=== PATIENT | male | born 1955 | race Two or more races ===

== ENCOUNTER 2021-10-17 16:29 | Inpatient (IN) | payer MEDICARE, OTHER ==
[~2021-10-17] VITALS: Ht 172.7 cm; Wt 70.3 kg
[2021-10-18] MEDS ORDERED: ZOLPIDEM TARTRATE 5 MG TABLET PO PRN (23:30)
[2021-10-18] MEDS ORDERED: LORAZEPAM 0.5 MG TABLET PO PRN (23:30)
[2021-10-18] MEDS ORDERED: BLOOD SUGAR DIAGNOSTIC 1 EACH STRIP IN ONE (23:30)
[2021-10-18] MEDS ORDERED: ACETAMINOPHEN 325 MG TABLET PO PRN (23:30)
[2021-10-18] MEDS ORDERED: MAG HYDROX/AL HYDROX/SIMETH 30 ML UDC PO PRN (23:30)
[2021-10-18] MEDS ORDERED: MAGNESIUM HYDROXIDE 30 ML UDC PO PRN (23:30)
[2021-10-19 00:19] VITALS: BP 121/78
[2021-10-19] MEDS ORDERED: LISI40TA13 PO (00:33)
[2021-10-19] MEDS ORDERED: METO-357 PO (00:35)
--- NOTE | 2021-10-19 00:47 | NUR ---
RN NOTES : ADMISSION NOTES: ADMITTED THIS 66Y/O MALE PATIENT ADMIT FROM [facility], ADMITTED TO GPS ON 5250 HOLD, PER HOLD GD, PT. QUIT EATING OR PHYSICAL ATTENDING TO HIS PERSONAL HYGINE , HE STOP TAKING HIS MEDICATIONS FOR TREATMENT OF SCHIZOPHRENIA,UNABLE TO CARE FOR HIMSELF.AND DEPRESSION ,PSYCHOSIS ,UPON FACE TO FACE ASSESSMENT PATIENT IS A&O X 2 DISORGNIZED, FORGETFUL,DELUSIONAL ,DISHELVED ,EASILY AGITATED , DENIES SI /HI AT THIS TIME, PT. IS POOR HISTORIAN, POOR INSIGHT ,POOR JUDGEMENT , BOTH MD AWARE AND NOTIFIED OF THE ADMISSION, BELONGINGS CONTRABAND WERE DONE , PT. REFUSED TO SIGNS ADMISSION CONSENT PAPERS DUE TO DISORGNIZED ,ENCOURAGED PT. TO TAKE SHOWER, PT. RIGHTS DISCUSS BY MACHINE GUNNER , PROVIDE THE PT. WITH HANDBOOK, AND MEDICATIONS GUIDE, ENVIRONMENTAL SAFETY CHECK DONE, ENCOURAGED PT. VERBALIZED ANY FEELING CONCERN TO STAFF, ORIENT TO UNIT POLICY, NO ACUTE DISTRESS NOTED,VITAL SIGNS WNL ,DENIES ANY PAIN AT THIS TIME,WILL CONTINUE TO MONITOR FOR Q15 SAFETY AND BEHAVIOR.
--- NOTE | 2021-10-19 00:54 | NUR ---
GPS RN NOTE: DR. ARCHIBALD NOTIFIED ABOUT PATIENT'S ADMISSION AND REQUESTED MD TO RECONCILE THE HOME MEDS.
--- NOTE | 2021-10-19 01:01 | NUR ---
MEDS RECONCILED BY DR. ARCHIBALD.
--- NOTE | 2021-10-19 06:29 | NUR ---
RN NOTES: NEXT OF KIN PLACED CALL THE FAMILY , PT. SON KILEY PLASENCIA AT [phone], AND INFORM REGARDING THE PATIENT ADMIT IN [facility] AND PROVIDE THE HOSPITAL PHONE NUMBER.
[2021-10-19 08:00] VITALS: BP 126/72
[2021-10-19] MEDS: METOPROLOL SUCCINATE 50 MG TAB.SR.24H PO SCH (08:44)
[2021-10-19] MEDS: LISINOPRIL (20MG) 20 MG TABLET PO SCH (08:44)
[2021-10-19 08:56] LABS: ALBUMIN 2.1 g/dL (3.4-5.0); BILIRUBIN,TOTAL 0.4 mg/dL (0.2-1.0); CALCIUM, SERUM 8.4 mg/dL (8.5-10.1); CREATININE 0.8 mg/dL (0.6-1.3); POTASSIUM 4.3 mmol/L (3.5-5.1); TOTAL PROTEIN, SERUM 5.3 g/dL (6.4-8.2)
[2021-10-19] MEDS: Fluoxetine 10 mg capsule PO SCH (11:03)
--- NOTE | 2021-10-19 12:48 | NUR ---
Intial Discharge Plan: The pt. currently resides in his son, Darrell [phone] home[[address] [facility] [address]; [phone]]. Patient stated he is interested in SNF placement if not would be agreeable to return home with son, Darrell. Per Darrell he would also like pt. to go to SNF if not pt. can return to his home with home health and he would like to apply for [facility]. SW will continue to collaborate with Psychiatrist and multidisciplinary team to coordinate a safe and proper discharge.
--- NOTE | 2021-10-19 12:49 | NUR ---
Family Contact: YUKO called and spoke with pt.'s son, Darrell [phone] to gather collateral information. Darrell stated pt. has history of Schizophrenia and medication non compliance. YUKO educated Darrell regarding advanced healthcare directive and Conservatorship. Per Darrell's request YUKO will email Darrell informational packets with appropriate resources to [email or web address]. Per Darrell, he is a hook up driver and is out of state working but his sister, Jovana Burger [phone] can also be contacted if he is unavailable.
--- NOTE | 2021-10-19 12:55 | NUR ---
SW Admit Source: The pt. is a 66 year old Male on a 5150 hold for GD. Per hold, the pt. was brought into [facility] by his son due to failure to care for self. Per hold, the son stated the pt. has displayed a decline in general functioning over the last 3 weeks. Per hold, Darrell stated the pt. has been eating and hydrating less, sleeping more during the day and and poor hygiene. Per hold, patient is paranoid and believes camera's are watching him. Per hold, patient was unable to verbalize a plan for self care and stated he was depressed. Patient and son are both agreeable for pt. to discharge to SNF or home with home health.
--- NOTE | 2021-10-19 14:10 | NUR ---
YUKO Family Contact: YUKO received a call from patient's ex- Fab ([phone]) who stated that the patient will be needing further treatment and to find pt a nursing facility. She stated that pt was living with her son but he works and is unable to properly care for him. She reported that prior to pt living with the son he was living with her. YUKO will recommend nursing facility options to pt and family.
[2021-10-19 16:00] VITALS: BP 103/63
[2021-10-19 19:59] VITALS: BP 125/79
[2021-10-19] MEDS: OLANZAPINE 2.5 MG TABLET PO SCH (21:18)
--- NOTE | 2021-10-20 06:32 | NUR ---
GPS RN NOTE PATIENT SLEPT WELL AT NIGHT, CALM, COOPERATIVE, MED COMPLAINT AT NIGHT, HEBREW SPEAKING, FOLLOWS DIRECTIONS WITH TRANSLATION. WILL ENDORSE TO AM RN FOR CONTINUITY OF CARE.
[2021-10-20 08:00] VITALS: BP 120/53
[2021-10-20] MEDS: OLANZAPINE 2.5 MG TABLET PO SCH ×2 (08:20→21:28)
[2021-10-20] MEDS: METOPROLOL SUCCINATE 50 MG TAB.SR.24H PO SCH (08:20)
[2021-10-20] MEDS: Fluoxetine 10 mg capsule PO SCH (08:21)
[2021-10-20] MEDS: LISINOPRIL (20MG) 20 MG TABLET PO SCH (08:21)
[2021-10-20 16:00] VITALS: BP 107/71
[2021-10-20 19:51] VITALS: BP 122/68
[2021-10-21 08:00] VITALS: BP 98/61
[2021-10-21] MEDS: Fluoxetine 10 mg capsule PO SCH (08:51)
[2021-10-21] MEDS: OLANZAPINE 2.5 MG TABLET PO SCH ×2 (08:51→21:50)
[2021-10-21] MEDS: METOPROLOL SUCCINATE 50 MG TAB.SR.24H PO SCH (08:53)
[2021-10-21] MEDS: LISINOPRIL (20MG) 20 MG TABLET PO SCH (08:53)
--- NOTE | 2021-10-21 12:02 | NUR ---
SNF Referral: YUKO sent clinicals to Roberto schultz from [facility] ([phone]) for placement option. SW sent H & P, progress notes, and medication list.
--- NOTE | 2021-10-21 15:16 | NUR ---
Individual Counseling: SW attempted to meet with pt. in activity room. Pt. was engaged and participating in activity with clinical resource coordinator. SW will continue to monitor patient's ability to participate in millieu.
[2021-10-21 16:00] VITALS: BP 122/75
--- NOTE | 2021-10-21 19:50 | NUR ---
GPS RN NOTES RECEIVED LAYING COMFORTABLY ON BED,A/O X 2-3,SPEAK FRENCH,WITH LITTLE INDONESIAN,COOPERATIVE,FORGETFULL.DENIES DISCOMFORTS AT THE MOMENT.WILL CONTINUE TO MONITOR BEHAVIOR
[2021-10-21 20:00] VITALS: BP 117/79
--- NOTE | 2021-10-21 20:00 | NUR ---
GPS RN NOTES RECEIVED INSIDE HER ROOM,ABLE TO RSPOND TO QUESTION,EASILY GETS AGITATED,WITH POOR IMPULSE.AMBULATE WITH STEADY GAIT,SCREAMS AT TIMES.WILL CONTINUE TO MONITOR BEHAVIOR. Addendum: 10/21/21 at 2020 by FIDENCIO MIR RN NOTES NOT FOR THIS PATIENT
[2021-10-21 21:09] VITALS: BP 117/79
--- NOTE | 2021-10-22 06:57 | NUR ---
GPS RN NOTES SLEEP WELL AT NIGHT.MED COMPLIANT,REDIRECTABLE.
[2021-10-22 08:00] VITALS: BP 111/64
[2021-10-22] MEDS: LISINOPRIL (20MG) 20 MG TABLET PO SCH (08:27)
[2021-10-22] MEDS: Fluoxetine 10 mg capsule PO SCH (08:27)
[2021-10-22] MEDS: OLANZAPINE 2.5 MG TABLET PO SCH ×2 (08:27→20:46)
[2021-10-22] MEDS: METOPROLOL SUCCINATE 50 MG TAB.SR.24H PO SCH (08:27)
[2021-10-22 16:00] VITALS: BP 100/60
[2021-10-22 20:00] VITALS: BP 95/59
--- NOTE | 2021-10-23 07:30 | NUR ---
RN OPENING NOTES RECEIVED PATIENT ON BED RESTING AND A/O X2. ON ROOM AIR TOLERATING WELL. NO SOB NOTED. NOT IN DISTRESS. PATIENT IS CALM AT THIS TIME. WITH NO IV ACCESS. SAFETY MEASURES IN PLACED. BED ON LOWEST LOCKED POSITION, SIDE RAILS UP X2. WILL CONTINUE TO MONITOR.
[2021-10-23 08:00] VITALS: BP 106/67
[2021-10-23] MEDS: OLANZAPINE 2.5 MG TABLET PO SCH ×2 (08:37→21:39)
[2021-10-23] MEDS: METOPROLOL SUCCINATE 50 MG TAB.SR.24H PO SCH (08:38)
[2021-10-23] MEDS: Fluoxetine 10 mg capsule PO SCH (08:38)
[2021-10-23] MEDS: LISINOPRIL (20MG) 20 MG TABLET PO SCH (09:00)
--- NOTE | 2021-10-23 11:25 | NUR ---
Court Notification: SW contacted patient's son Darrell ([phone]) of patient's 5250 hearing today. YUKO left a voicemail.
--- NOTE | 2021-10-23 12:49 | NUR ---
Court Hearing: Patient's court hearing for 0630 was today and it was upheld for GD.
[2021-10-23 16:00] VITALS: BP 101/61
--- NOTE | 2021-10-23 18:31 | NUR ---
RN CLOSING NOTES PATIENT ON BED RESTING AND A/O X2. ON ROOM AIR TOLERATING WELL. NO SOB NOTED. NOT IN DISTRESS. PATIENT IS CALM AT THIS TIME. WITH NO IV ACCESS. DUE MEDS GIVEN. SAFETY MEASURES IN PLACED. BED ON LOWEST LOCKED POSITION, SIDE RAILS UP X2. WILL ENDORSE TO NEXT SHIFT FOR ORESTES.
--- NOTE | 2021-10-23 19:30 | NUR ---
GPS RN NOTE, RECEIVED PATIENT AWAKE AND IN BED, NO S/S OR COMPLAINTS OF PAIN AT THIS TIME. PATIENT IS DISPLAYING NO S/S OF APPARENT DISTRESS AT THIS TIME. PATIENT BREATHING IS UNLABORED WITH EQUAL RISE AND FALL OF THE CHEST. PATIENT IS ALERT AND ORIENTED X 2 ON ROOM AIR WITH A SPO2 99%. PATIENT IS COMPLIANT WITH MEDICATIONS, DEPRESSED, COOPERATIVE, FORGETFUL, AND NEEDS REDIRECTION. PATIENT DENIES SUICIDAL AND HOMICIDAL IDEATIONS AT THIS TIME. PATIENT ASSISTED WITH TURNING AND REPOSITIONING Q2HR AND PRN FOR COMFORT AND CIRCULATION. PATIENT HAS NO NEEDS AT THIS TIME. PATIENT EDUCATED ON THE USE OF THE CALL BARBOZA. PATIENT BED SIDE RAILS UP X 2 FOR SAFETY. PATIENT BED IS LOCKED, LOW, WITH BED ALARM ON. WILL CONTINUE TO MONITOR THIS PATIENT Q15 MINUTES WITH THE HELP OF STAFF TO MAINTAIN SAFETY.
[2021-10-23 20:00] VITALS: BP 116/67
[2021-10-24 08:00] VITALS: BP 105/55
[2021-10-24] MEDS: OLANZAPINE 2.5 MG TABLET PO SCH ×2 (08:24→21:15)
[2021-10-24] MEDS: METOPROLOL SUCCINATE 50 MG TAB.SR.24H PO SCH (08:26)
[2021-10-24] MEDS: LISINOPRIL (20MG) 20 MG TABLET PO SCH (08:26)
[2021-10-24] MEDS: Fluoxetine 10 mg capsule PO SCH (08:26)
[2021-10-24 16:00] VITALS: BP 103/73
--- NOTE | 2021-10-24 19:30 | NUR ---
GPS RN NOTE, RECEIVED PATIENT AWAKE AND IN BED, NO S/S OR COMPLAINTS OF PAIN AT THIS TIME. PATIENT IS DISPLAYING NO S/S OF APPARENT DISTRESS AT THIS TIME. PATIENT BREATHING IS UNLABORED WITH EQUAL RISE AND FALL OF THE CHEST. PATIENT IS ALERT AND ORIENTED X 2 ON ROOM AIR WITH A SPO2 98%. PATIENT IS VINCENTIAN SPEAKING BUT UNDERSTANDS SOME SWEDISH. PATIENT IS COMPLIANT WITH MEDICATIONS, DEPRESSED, COOPERATIVE, FORGETFUL, AND NEEDS REDIRECTION. PATIENT DENIES SUICIDAL AND HOMICIDAL IDEATIONS AT THIS TIME. PATIENT ASSISTED WITH TURNING AND REPOSITIONING Q2HR AND PRN FOR COMFORT AND CIRCULATION. PATIENT HAS NO NEEDS AT THIS TIME. PATIENT EDUCATED ON THE USE OF THE CALL BARBOZA. PATIENT BED SIDE RAILS UP X 2 FOR SAFETY. PATIENT BED IS LOCKED, LOW, WITH BED ALARM ON. WILL CONTINUE TO MONITOR THIS PATIENT Q15 MINUTES WITH THE HELP OF STAFF TO MAINTAIN SAFETY.
[2021-10-24 20:00] VITALS: BP 98/59
[2021-10-25 08:00] VITALS: BP 101/75
[2021-10-25] MEDS: Fluoxetine 10 mg capsule PO SCH (08:27)
[2021-10-25] MEDS: METOPROLOL SUCCINATE 50 MG TAB.SR.24H PO SCH (08:27)
[2021-10-25] MEDS: LISINOPRIL (20MG) 20 MG TABLET PO SCH (08:27)
[2021-10-25] MEDS: OLANZAPINE 2.5 MG TABLET PO SCH ×2 (08:27→21:05)
[2021-10-25 16:00] VITALS: BP 106/78
[2021-10-25 20:19] VITALS: BP 106/59
--- NOTE | 2021-10-25 23:47 | NUR ---
Patient refused skin assessment .
[2021-10-26 08:00] VITALS: BP 108/74
[2021-10-26] MEDS: Fluoxetine 10 mg capsule PO SCH (08:26)
[2021-10-26] MEDS: METOPROLOL SUCCINATE 50 MG TAB.SR.24H PO SCH (08:26)
[2021-10-26] MEDS: OLANZAPINE 2.5 MG TABLET PO SCH ×2 (08:27→21:04)
[2021-10-26] MEDS: LISINOPRIL (20MG) 20 MG TABLET PO SCH (08:27)
[2021-10-26 16:00] VITALS: BP 111/74
[2021-10-26 19:28] VITALS: BP 104/70
[2021-10-27 08:33] VITALS: BP 120/71
[2021-10-27] MEDS: METOPROLOL SUCCINATE 50 MG TAB.SR.24H PO SCH (10:13)
[2021-10-27] MEDS: Fluoxetine 10 mg capsule PO SCH (10:13)
[2021-10-27] MEDS: LISINOPRIL (20MG) 20 MG TABLET PO SCH (10:14)
[2021-10-27] MEDS: OLANZAPINE 2.5 MG TABLET PO SCH ×2 (10:14→21:15)
--- NOTE | 2021-10-27 13:05 | NUR ---
YUKO Family Contact: YUKO contacted pt's son Darrell ([phone]) and notified pt will be discharged to [facility] on 10/29 and he was agreeable with this.
--- NOTE | 2021-10-27 14:01 | NUR ---
no complaints,cooperative,isolative.
[2021-10-27 15:13] VITALS: BP 100/67
[2021-10-27 20:20] VITALS: BP 101/57
[2021-10-28 08:00] VITALS: BP 108/68
[2021-10-28] MEDS: OLANZAPINE 2.5 MG TABLET PO SCH ×2 (08:34→21:27)
[2021-10-28] MEDS: LISINOPRIL (20MG) 20 MG TABLET PO SCH (08:34)
[2021-10-28] MEDS: Fluoxetine 10 mg capsule PO SCH (08:34)
[2021-10-28] MEDS: METOPROLOL SUCCINATE 50 MG TAB.SR.24H PO SCH (08:35)
[2021-10-28 16:29] VITALS: BP 106/70
[2021-10-28 20:00] VITALS: BP 114/64
[2021-10-29 08:00] VITALS: BP 121/75
--- NOTE | 2021-10-29 08:12 | NUR ---
SW Discharge Note: Patient will be discharged to long term facility to [facility] [address] [place] [address]; . Please arrange Ambulance transportation at 1PM. Aeronautical Engineering Professor spoke with LYNN, Appliance Painter And Refinisher at [facility]; ([phone]), who stated patient will be accepted at facility today. Patient is alert and oriented x2. Patient denies any suicidal or homicidal ideations. Patient is aware and agreeable with discharge plans. Patients son Darrell ([phone]) is aware and agreeable of discharge. Patient will continue to follow-up with her Psychiatrist Dr. Angeles [address] [address]; ([phone]) and Cleaner Signs Dr. Bronson at [address] [facility] [address], [place] [address]; ([phone]). Pt presents with euthymic mood and congruent affect.
[2021-10-29 08:22] VITALS: BP 121/75
[2021-10-29] MEDS: LISINOPRIL (20MG) 20 MG TABLET PO SCH (08:22)
[2021-10-29] MEDS: OLANZAPINE 2.5 MG TABLET PO SCH (08:22)
[2021-10-29] MEDS: METOPROLOL SUCCINATE 50 MG TAB.SR.24H PO SCH (08:22)
[2021-10-29] MEDS: Fluoxetine 10 mg capsule PO SCH (08:22)
--- NOTE | 2021-10-29 13:35 | NUR ---
RN-DISCHARGE NOTES PATIENT HAD A DISCHARGE ORDER FROM DR. CASEY (PSYCHIATRIST) DR. OCHOA ( [facility]) MEDICALLY CLEARED PATIENT. PATIENT DID NOT VERBALIZE SI/HI,DENIES VISUAL/AUDITORY HALLUCINATIONS AT THE TIME OF DISCHARGE. PATIENT LEFT THE UNIT IN STABLE CONDITION A/O X3, ALL BELONGINGS WAS GIVEN BACK TO THE PATIENT. PER SW NOTES PATIENT'S SON KIRTI WAS AWARE OF THE DISCHARGE.REPORT WAS GIVEN TO JAUN ( [facility] [employer] [facility]).
== END 2021-10-29 13:30 | DRG 885 ==
LOC: EDSEX 10-18 22:54 → GPS 10-18 22:54
PROVIDERS: ADMIT Psychiatry & Neurology Psychiatry; ATTEND Internal Medicine
DX: F25.1 Schizoaffective disorder, depressive type (principal); F23 Brief psychotic disorder; F41.9 Anxiety disorder, unspecified; Z73.6 Limitation of activities due to disability; R53.1 Weakness; R27.8 Other lack of coordination; Z91.81 History of falling; G31.84 Mild cognitive impairment of uncertain or unknown etiology; I10 Essential (primary) hypertension
CPT/HCPCS: 36415; 80053-TC; 80061-TC; 82962-TC; 87081-TC; 97116-TC; 97530-TC